=== PATIENT | male | born 1975 | race Caucasian/White ===

== ENCOUNTER 2017-01-17 10:29 | Emergency (ER) | payer BC ==
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
--- NOTE | 2017-01-17 12:11 | CPEKG ---
Heart Rate: 68 RR Interval: 882 P-R Interval: 148 QRSD Interval: 80 QT Interval: 400 QTC Interval: 426 P Follett: 72 QRS Follett: 67 T Wave Follett: 38 EKG Severity - NORMAL ECG - EKG Impression: SINUS RHYTHM Electronically Signed By: Deonte Booth 18-Jan-2017 08:52:24
[2017-01-17 12:22] VITALS: BP 119/66; PULSE 68; RESP 16; TEMP 98.4; O2SAT 98
== END 2017-01-17 12:21 | disposition home or self-care (01) ==
DX: S06.0X1A Concussion with loss of consciousness of 30 minutes or less, initial encounter (principal); V18.2XXA Unspecified pedal cyclist injured in noncollision transport accident in nontraffic accident, initial encounter